=== PATIENT | female | born 1995 | race Caucasian/White ===

== ENCOUNTER 2018-06-27 21:41 | Emergency (ER) | payer MEDICAID, OTHER ==
--- NOTE | 2018-06-27 22:07 | EDM.PDOC ---
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 The patient has not started care but did have the confirmed at [facility] and has a scheduled appointment with them next week on July 04. The patient has had some upper respiratory symptoms but no abdominal pain vomiting or diarrhea and has had no morning sickness. She has no urinary complaints and has no abdominal surgical history. The patient has no gynecology history and says that she has not used any pads since the bleeding started. She has not had sexual intercourse for about a week. She says darkish-looking blood on the toilet paper but there is no tissue and she has not had any bleeding in her underwear. Sling no abdominal cramping. Review of systems: As per history of present illness and below otherwise all systems reviewed and negative. Past medical history: As per history of present illness and as reviewed below otherwise noncontributory. Surgical history: As per history of present illness and as reviewed below otherwise noncontributory. Social history: No reported history of drug or alcohol abuse. Family history: As per history of present illness and as reviewed below otherwise noncontributory. Physical exam: General: Well-developed well-nourished female who is nontoxic and vital signs are noted by me HEENT: Atraumatic, normocephalic, negative for conjunctival pallor or scleral icterus, mucous membranes moist, throat clear, neck supple, nontender, trachea midline. Lungs: Clear to auscultation, breath sounds equal bilaterally, chest nontender. Heart: S1S2, regular rate and rhythm no overt murmurs Abdomen: Soft, nondistended, nontender. Negative for masses or hepatosplenomegaly. Negative for costovertebral tenderness. Pelvis: Stable nontender. Genitourinary: Deferred. Rectal: Deferred. Extremities: Atraumatic, negative for cords or calf pain. Neurovascular unremarkable. Full range of motion without defects or deformities Neuro: Awake, alert, oriented. Cranial nerves II through XII unremarkable. Cerebellum unremarkable. Motor and sensory unremarkable throughout. Exam nonfocal. Diagnostics: CBC quantitative hCG UA with reflex culture ABO Rh pelvic ultrasound Therapeutics: The patient is aware of all testing results and ultrasound report. I've advised her on strict pelvic rest and to keep her follow-up appointment in the clinic next week. Impression: Threatened Definitive disposition and diagnosis as appropriate pending reevaluation and review of above. - Related Data Allergies Allergy/AdvReac Type Severity Reaction Status Date / Time No Known Allergies Allergy Verified 06/27/18 21:42 Home Meds: Home Meds . [No Known Home Meds] 06/27/18 [History] Past Medical History - Past Health History Medical/Surgical History: Denies Medical/Surgical History Social & Family History - Family History Family Medical History: Noncontributory - Tobacco Use Smoking Status *Q: Current Every Day Smoker Years of Tobacco use: 5 Packs/Tins Daily: 1 - Recreational Drug Use Recreational Drug Use: No ED ROS GENERAL - Review of Systems Review Of Systems: ROS reveals no pertinent complaints other than HPI. ED EXAM, GENERAL - Physical Exam Exam: See Below (See dictation) Course - Vital Signs Last Recorded V/S: Last Vital Signs Temp 37.4 C 06/27/18 21:55 Pulse 90 06/27/18 21:55 Resp 18 06/27/18 21:55 BP 117/73 06/27/18 21:55 Pulse Ox 95 06/27/18 21:55 - Orders/Labs/Meds Labs: Laboratory Tests 06/27/18 06/27/18 06/27/18 Range/Units 22:00 22:15 22:15 WBC 13.43 H (4.0-11.0) K/uL RBC 4.31 (4.30-5.90) M/uL Hgb 12.9 (12.0-16.0) g/dL Hct 36.9 (36.0-46.0) % MCV 85.6 (80.0-98.0) fL MCH 29.9 (27.0-32.0) pg MCHC 35.0 (31.0-37.0) g/dL RDW Std Deviation 39.6 (28.0-62.0) fl RDW Coeff of Angela 13 (11.0-15.0) % Plt Count 242 (150-400) K/uL MPV 10.50 (7.40-12.00) fL Neut % (Auto) 75.7 (48.0-80.0) % Lymph % (Auto) 15.9 L (16.0-40.0) % Prairie % (Auto) 7.6 (0.0-15.0) % Eos % (Auto) 0.7 (0.0-7.0) % Baso % (Auto) 0.1 (0.0-1.5) % Neut # (Auto) 10.2 H (1.4-5.7) K/uL Lymph # (Auto) 2.1 (0.6-2.4) K/uL Prairie # (Auto) 1.0 H (0.0-0.8) K/uL Eos # (Auto) 0.1 (0.0-0.7) K/uL Baso # (Auto) 0.0 (0.0-0.1) K/uL Nucleated RBC % 0.0 /100WBC Nucleated RBCs # 0 K/uL HCG, Quant 613230.0 mIU/mL Urine Color YELLOW Urine Appearance CLEAR Urine pH 5.5 (5.0-8.0) Ur Specific [place] 1.020 (1.001-1.035) Urine Protein NEGATIVE (NEGATIVE) mg/dL Urine Glucose (UA) NEGATIVE (NEGATIVE) mg/dL Urine Ketones NEGATIVE (NEGATIVE) mg/dL Urine Occult Blood TRACE-INTACT H (NEGATIVE) Urine Nitrite NEGATIVE (NEGATIVE) Urine Bilirubin NEGATIVE (NEGATIVE) Urine Urobilinogen 0.2 (<2.0) EU/dL Ur Leukocyte Esterase NEGATIVE (NEGATIVE) Urine RBC 0-1 (0-2/HPF) Urine WBC 0-2 (0-5/HPF) Ur Squamous Epith Cells FEW Urine Bacteria FEW (NEGATIVE) Urine Mucus LIGHT (NONE-MOD) Blood Type 06/27/18 Range/Units 22:15 WBC (4.0-11.0) K/uL RBC (4.30-5.90) M/uL Hgb (12.0-16.0) g/dL Hct (36.0-46.0) % MCV (80.0-98.0) fL MCH (27.0-32.0) pg MCHC (31.0-37.0) g/dL RDW Std Deviation (28.0-62.0) fl RDW Coeff of Angela (11.0-15.0) % Plt Count (150-400) K/uL MPV (7.40-12.00) fL Neut % (Auto) (48.0-80.0) % Lymph % (Auto) (16.0-40.0) % Prairie % (Auto) (0.0-15.0) % Eos % (Auto) (0.0-7.0) % Baso % (Auto) (0.0-1.5) % Neut # (Auto) (1.4-5.7) K/uL Lymph # (Auto) (0.6-2.4) K/uL Prairie # (Auto) (0.0-0.8) K/uL Eos # (Auto) (0.0-0.7) K/uL Baso # (Auto) (0.0-0.1) K/uL Nucleated RBC % /100WBC Nucleated RBCs # K/uL HCG, Quant mIU/mL Urine Color Urine Appearance Urine pH (5.0-8.0) Ur Specific Cam[place] (1.001-1.035) Urine Protein (NEGATIVE) mg/dL Urine Glucose (UA) (NEGATIVE) mg/dL Urine Ketones (NEGATIVE) mg/dL Urine Occult Blood (NEGATIVE) Urine Nitrite (NEGATIVE) Urine Bilirubin (NEGATIVE) Urine Urobilinogen (<2.0) EU/dL Ur Leukocyte Esterase (NEGATIVE) Urine RBC (0-2/HPF) Urine WBC (0-5/HPF) Ur Squamous Epith Cells Urine Bacteria (NEGATIVE) Urine Mucus (NONE-MOD) Blood Type O POSITIVE Departure - Departure Time of Disposition: 00:36 Disposition: Home, Self-Care 01 Clinical Impression: Threatened - Discharge Information Referrals: PCP,None [Primary Care Provider] - Forms: ED Department Discharge Additional Instructions: The following information is given to patients seen in the emergency department who are being discharged to home. This information is to outline your options for follow-up care. We provide all patients seen in our emergency department with a follow-up referral. The need for follow-up, as well as the timing and circumstances, are variable depending upon the specifics of your emergency department visit. If you don't have a primary care physician on staff, we will provide you with a referral. We always advise you to contact your personal physician following an emergency department visit to inform them of the circumstance of the visit and for follow-up with them and/or the need for any referrals to a consulting specialist. The emergency department will also refer you to a specialist when appropriate. This referral assures that you have the opportunity for followup care with a specialist. All of these measure are taken in an effort to provide you with optimal care, which includes your followup. Under all circumstances we always encourage you to contact your private physician who remains a resource for coordinating your care. When calling for followup care, please make the office aware that this follow-up is from your recent emergency room visit. If for any reason you are refused follow-up, please contact the [facility] emergency department at and ask to speak to the emergency department charge nurse. [facility] [address] [place] [address] [phone] Push hydration and rest as much as possible. Strict pelvic rest as we discussed with nothing in vagina until you're followed up on your appointment next week. Please keep your appointment as scheduled with [facility] and return to ER as needed and as discussed.
--- NOTE | 2018-06-27 23:46 | US ---
INDICATION: Vaginal bleeding TECHNIQUE: Ultrasound OB pelvis transvaginal. Real time pederson scale imaging of the pelvis was performed. COMPARISON: None FINDINGS: LMP: 04/28/2018 Gestational age by LMP: 8 weeks 4 days Estimated due date by LMP: 02/02/2019 Sonographic imaging demonstrates a single living intrauterine gestation. The embryo demonstrates a regular cardiac rate measuring 169 beats per minute. The embryo`s crown rump length measurement of 1.87 cm corresponds to a gestational age of 8 weeks 3 days with a sonographic due date of 02/03/2019. There is a normal appearing yolk sac. There are no gross abnormalities noted within the embryo at this early state of development. The placenta has not yet developed. The gestational sac has a normal appearance. Punctate hypoechoic area adjacent to the gestational sac of no clinical significance. The amount of fluid within the sac appears appropriate for gestational age. The cervix is closed. The myometrium appears normal. The ovaries are of normal size. There are no suspicious fluid collections noted in the cul-de-sac. IMPRESSION: Single intrauterine with crown-rump length consistent with a gestational age of 8 weeks 3 days. This compares the gestational age by LMP of 8 weeks 4 days. heart rate 169 beats per minute. Punctate hypoechoic area adjacent to gestational sac of unknown clinical significance. Small subchorionic hemorrhage cannot be excluded. Dictated by Geoff Carrero MD @ Jun 28 2018 12:29AM Signed by Dr. Geoff Carrero @ Jun 28 2018 12:31AM
== END 2018-06-28 00:44 | disposition home or self-care (01) ==
LOC: MW.ED 21:41
DX: O20.0 Threatened abortion (principal); O99.331 Smoking (tobacco) complicating pregnancy, first trimester; F17.210 Nicotine dependence, cigarettes, uncomplicated; Z3A.08 8 weeks gestation of pregnancy
CPT/HCPCS: 36415; 76801; 76801-26; 81001; 84702; 85025; 86900; 86901; 99283; 99284-25

== ENCOUNTER 2019-01-31 12:21 | Inpatient (IN) | payer MEDICAID ==
[2019-01-31] MEDS ORDERED: Sodium Chloride 0.9% 2.5 ML Syringe FLUSH PRN (12:33)
[2019-01-31] MEDS ORDERED: Sodium Chloride 0.9% 10 ML Syringe FLUSH PRN (12:33)
[2019-01-31] MEDS ORDERED: Lidocaine 1% 50 ML MDV INJECT PRN (12:33)
[2019-01-31] MEDS ORDERED: Water For Irrigation,Sterile 1,000 ML Container IRR PRN (12:33)
[2019-01-31] MEDS ORDERED: Ondansetron 4 MG/2 ML SDV IVPUSH PRN (12:33)
[2019-01-31] MEDS ORDERED: Sodium Chloride 0.9% 10 ML SDV IV PRN (12:33)
[2019-01-31] MEDS ORDERED: Methylergonovine 0.2 MG/1 ML Amp IM PRN (12:33)
[2019-01-31] MEDS ORDERED: Misoprostol 200 MCG Tab PO PRN (12:33)
[2019-01-31] MEDS ORDERED: Carboprost Tromethamine 250 MCG/1 ML Amp IM PRN (12:33)
[2019-01-31] MEDS ORDERED: Tranexamic Acid 1,000 MG in Sodium Chloride 0.9% 100 ML IV PRN (12:33)
[2019-01-31] MEDS ORDERED: Nalbuphine 10 MG/1 ML Vial IVPUSH PRN (12:33)
[2019-01-31] MEDS ORDERED: Terbutaline 1 MG/ML SDV SUBCUT PRN (12:33)
[2019-01-31] MEDS ORDERED: Butorphanol 1 MG/ML SDV IVPUSH PRN (12:33)
[2019-01-31] MEDS ORDERED: Oxytocin/0.9 % Sodium Chloride 30 UNIT/500 ML BAG IV SCH ×2 (12:45)
[2019-01-31] MEDS ORDERED: Misoprostol 25 MCG (1/4 of 100 MCG) Tab VAG PRN ×2 (13:00→17:00)
[2019-01-31] MEDS: Lactated Ringers 1,000 ML IV SCH (13:08)
--- NOTE | 2019-02-01 02:20 | PCM.PREANE ---
Preanesthetic Assessment - Anesthesia/Transfusion/Family Hx Anesthesia History: No Prior Anesthesia Family History of Anesthesia Reaction: No Transfusion History: No Prior Transfusion(s) - Review of Systems General: No Symptoms Pulmonary: No Symptoms Cardiovascular: No Symptoms Gastrointestinal: No Symptoms Neurological: No Symptoms Other: Reports: None - Physical Assessment Height: 5 ft 2 in Weight: 87.543 kg ASA Class: 2 Mental Status: Alert & Oriented x3 Airway Class: Mallampati = 2 Dentition: Reports: Normal Dentition Thyro-Mental Finger Breadths: 3 Mouth Opening Finger Breadths: 3 ROM/Head Extension: Full Lungs: Clear to Auscultation, Normal Respiratory Effort Cardiovascular: Regular Rate, Regular Rhythm - Lab Values: Laboratory Last Values WBC 8.85 K/uL (4.0-11.0) 01/31/19 13:07 RBC 3.97 M/uL (4.30-5.90) L 01/31/19 13:07 Hgb 12.0 g/dL (12.0-16.0) 01/31/19 13:07 Hct 35.9 % (36.0-46.0) L 01/31/19 13:07 MCV 90.4 fL (80.0-98.0) 01/31/19 13:07 MCH 30.2 pg (27.0-32.0) 01/31/19 13:07 MCHC 33.4 g/dL (31.0-37.0) 01/31/19 13:07 RDW Std Deviation 47.8 fl (28.0-62.0) 01/31/19 13:07 RDW Coeff of Angela 15 % (11.0-15.0) 01/31/19 13:07 Plt Count 182 K/uL (150-400) 01/31/19 13:07 MPV 11.30 fL (7.40-12.00) 01/31/19 13:07 Nucleated RBC % 0.0 /100WBC 01/31/19 13:07 Nucleated RBCs # 0 K/uL 01/31/19 13:07 Blood Type O POSITIVE 01/31/19 13:07 Antibody Screen NEGATIVE 01/31/19 13:07 - Allergies Allergies/Adverse Reactions: Allergies Allergy/AdvReac Type Severity Reaction Status Date / Time No Known Allergies Allergy Verified 01/31/19 18:15 - Anesthesia Plan Free Text/Narrative:: Induction for macrosomia - Acknowledgements Anesthesia Type Planned: Epidural Pt an Appropriate Candidate for the Planned Anesthesia: Yes Alternatives and Risks of Anesthesia Discussed w Pt/Guardian: Yes Pt/Guardian Understands and Agrees with Anesthesia Plan: Yes PreAnesthesia Questionnaire - Past Health History Medical/Surgical History: Denies Medical/Surgical History HEENT History: Reports: None Cardiovascular History: Reports: None Respiratory History: Reports: None Gastrointestinal History: Reports: GERD Genitourinary History: Reports: None 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 Para: 0 LMP (Approximate): Musculoskeletal History: Reports: None Neurological History: Reports: None Psychiatric History: Reports: None Endocrine/Metabolic History: Reports: Obesity/BMI 30+ Hematologic History: Reports: None Immunologic History: Reports: None Oncologic (Cancer) History: Reports: None Dermatologic History: Reports: None - Infectious Disease History Infectious Disease History: Reports: None, Mononucleosis - SUBSTANCE USE Smoking Status *Q: Former Smoker Tobacco Use Within Last Twelve Months: Cigarettes Second Hand Smoke Exposure: No Recreational Drug Use History: No - HOME MEDS Home Medications: Home Meds Pnv No.95/Ferrous Fum/Folic AC [ Caplet] 1 tab PO DAILY 01/31/19 [ History] valACYclovir HCl [Valtrex] 500 mg PO DAILY 01/31/19 [History] - CURRENT (IN HOUSE) MEDS Current Meds: Current Medications Butorphanol Tartrate (Stadol) 1 mg IVPUSH Q1H PRN PRN Reason: Pain Carboprost Tromethamine (Hemabate Ds) 250 mcg IM ASDIRECTED PRN PRN Reason: Post Hemorrhage Lactated Ringer's (Ringers, Lactated) 1,000 mls @ 150 mls/hr IV ASDIRECTED QUYEN Last Infusion: 01/31/19 13:31 Dose: 0 mls/hr Oxytocin/Sodium Chloride (Oxytocin 30 Unit/500 Ml-Ns) 30 unit in 500 mls @ 999 mls/hr IV TITRATE QUYEN Oxytocin/Sodium Chloride (Oxytocin 30 Unit/500 Ml-Ns) 30 unit in 500 mls @ 2 mls/hr IV TITRATE QUYEN; Protocol Tranexamic Acid 1,000 mg/ (Sodium Chloride) 110 mls @ 660 mls/hr IV ONETIME PRN PRN Reason: Bleeding Lidocaine HCl (Xylocaine 1%) 50 ml INJECT ONETIME PRN PRN Reason: Laceration repair Methylergonovine Maleate (Methergine) 0.2 mg IM ASDIRECTED PRN PRN Reason: Post Hemorrhage Misoprostol (Cytotec) 200 mcg PO ONETIME PRN PRN Reason: Post Hemorrhage Misoprostol (Cytotec) 25 mcg VAG ONETIME PRN PRN Reason: Cervical Ripening Last Admin: 01/31/19 13:17 Dose: 25 mcg Misoprostol (Cytotec) 25 mcg VAG Q4H PRN PRN Reason: Cervical Ripening Last Admin: 01/31/19 17:07 Dose: 25 mcg Nalbuphine HCl (Nubain) 10 mg IVPUSH Q1H PRN PRN Reason: Pain (severe 7-10) Ondansetron HCl (Zofran) 4 mg IVPUSH Q6H PRN PRN Reason: Nausea/Vomiting Sodium Chloride (Saline Flush) 10 ml FLUSH ASDIRECTED PRN PRN Reason: Keep Vein Open Sodium Chloride (Saline Flush) 2.5 ml FLUSH ASDIRECTED PRN PRN Reason: Keep Vein Open Sodium Chloride (Normal Saline) 10 ml IV ASDIRECTED PRN PRN Reason: IV Use Sterile Water (Sterile Water For Irrigation) 1,000 ml IRR ASDIRECTED PRN PRN Reason: delivery Terbutaline Sulfate (Brethine) 0.25 mg SUBCUT ASDIRECTED PRN PRN Reason: Tacysystole
[2019-02-01] MEDS: Lactated Ringers 1,000 ML IV SCH ×6 (02:40→23:41)
[2019-02-01] MEDS ORDERED: Acetaminophen 500 MG Tab PO ONE (17:25)
[2019-02-01] MEDS ORDERED: Ampicillin 2 GM in Sodium Chloride 0.9% 100 ML IV SCH (17:30)
[2019-02-01] MEDS ORDERED: Bupivacaine 0.5% 10 ML SDV ONE (20:42)
[2019-02-01] MEDS ORDERED: Citric Acid/Sodium Citrate Solution 30 ML Cup PO ONE (20:47)
[2019-02-01] MEDS ORDERED: Ondansetron 4 MG/2 ML SDV ONE (20:51)
[2019-02-01] MEDS ORDERED: Oxytocin 10 Units/1 ML SDV ONE (20:51)
[2019-02-01] MEDS ORDERED: ePHEDrine 50 MG/ML SDV ONE (20:57)
[2019-02-01] MEDS ORDERED: Sodium Chloride 0.9% 20 ML ONE (20:57)
[2019-02-01] MEDS ORDERED: Phenylephrine/Normal Saline 100 MCG/ML 10 ML Syringe ONE (21:00)
[2019-02-01] MEDS ORDERED: Oxytocin/0.9 % Sodium Chloride 30 UNIT/500 ML BAG IV SCH (21:00)
[2019-02-01] MEDS ORDERED: Lactated Ringers 1,000 ML IV SCH (21:00)
[2019-02-01] MEDS ORDERED: Glycopyrrolate 0.2 MG/ML SDV ONE (21:00)
[2019-02-01] MEDS ORDERED: Morphine PF 10 MG/10 ML SDV ONE (21:11)
[2019-02-01] MEDS ORDERED: Labetalol 100 MG/20 ML MDV ONE (21:18)
[2019-02-01] MEDS ORDERED: Clindamycin Phosphate in D5W 900 MG in Premix Bag 1 BAG IV PRN ×2 (21:19)
[2019-02-01] MEDS ORDERED: Octyl 2-Cyanoacrylate 1 Tube ONE (21:51)
[2019-02-01] MEDS ORDERED: Naloxone 0.4 MG/ML Syringe IVPUSH PRN (21:52)
[2019-02-01] MEDS ORDERED: diphenhydrAMINE 50 MG/ML SDV IVPUSH PRN ×2 (21:52→22:34)
[2019-02-01] MEDS ORDERED: Nalbuphine 10 MG/1 ML Vial IVPUSH PRN (21:52)
[2019-02-01] MEDS ORDERED: Bisacodyl 10 MG Supp RECTAL PRN (22:34)
[2019-02-01] MEDS ORDERED: Acetaminophen/oxyCODONE 325-5 MG Tab PO PRN (22:34)
[2019-02-01] MEDS ORDERED: Lanolin 100% Cream 7 GM Tube TOP PRN (22:34)
[2019-02-01] MEDS ORDERED: Ondansetron 4 MG/2 ML SDV IVPUSH PRN (22:34)
--- NOTE | 2019-02-01 22:40 | PCM.OPNOTE ---
- General Post-Op/Procedure Note Date of Surgery/Procedure: 02/01/19 Operative Procedure(s): Primary lower segment Findings: Live male delivered at 2124 , 8/9 weight 4210g Pre Op Diagnosis: Arrest of Dilatation. Suspected Macrosomia. Chorioamnionitis Post-Op Diagnosis: Same Anesthesia Technique: Epidural Primary Surgeon: Blake Stone Anesthesia Provider: Moi Muir Pathology: Placenta Fluid Replacement, Intraop: 1,000 Output, Urine Amount: 510 EBL in mLs: 800 Complications: None Condition: Good Free Text/Narrative:: Intake & Output 02/01/19 02/01/19 02/01/19 06:59 14:59 22:59 Output Total 520 Balance -520
[2019-02-01] MEDS ORDERED: Ketorolac 30 MG/ML SDV ONE (22:44)
[2019-02-01] MEDS: Ketorolac 30 MG/ML SDV IVPUSH SCH (22:45)
--- NOTE | 2019-02-01 22:51 | PCM.POSTAN ---
POST ANESTHESIA ASSESSMENT - MENTAL STATUS Mental Status: Alert, Oriented - VITAL SIGNS Vital Signs: Last Vital Signs Temp 211.1 F H 02/01/19 22:14 Pulse 94 02/01/19 22:49 Resp 14 02/01/19 22:49 BP 140/84 02/01/19 22:49 Pulse Ox 99 02/01/19 22:49 - RESPIRATORY Respiratory Status: Respiratory Rate WNL, Airway Patent, O2 Saturation Stable - CARDIOVASCULAR CV Status: Pulse Rate WNL, Blood Pressure Stable - GASTROINTESTINAL GI Status: No Symptoms - PAIN Pain Score: 0 - POST OP HYDRATION Hydration Status: Adequate & Stable - OBSERVATIONS Free Text/Narrative:: Temp is 99.5F
[2019-02-02] MEDS: Ketorolac 30 MG/ML SDV IVPUSH SCH ×4 (04:58→22:45)
[2019-02-02] MEDS: Lactated Ringers 1,000 ML IV SCH (08:08)
--- NOTE | 2019-02-02 11:14 | OR ---
SURGEON: MIGUEL GASPAR DATE OF PROCEDURE:02/01/2019 PREOPERATIVE DIAGNOSES: A 23-year-old G 1, P 0, at 39 weeks and 6 days, admitted for induction of labor, Macrosomia POSTOPERATIVE DIAGNOSES: A 23-year-old G 1, P 0, at 39 weeks and 6 days, admitted for induction of labor, elective and macrosomia, chorioamnionitis. INDICATION: Arrest of dilatation. Chorioamnionitis, Macrosomia. PROCEDURE: Primary low segment section. EBL: 800. IV FLUID: 1000. URINE OUTPUT: 500. ANESTHESIA: Epidural. NOTABLE FINDING: A live male delivered at 21:24. score is 8 and 9, weight is 4210g BRIEF HISTORY: The patient is a 23-year-old, G1, P0, 39 weeks and 6 days, who was offered primary secondary to suspected macrosomia. The patient declined and wanted to try induction of labor. Induction of labor was started with Cytotec, and after which, she got CRB. After CRB, she became 4 cm dilated. She was ruptured and Pitocin was started. The patient was about 5 to 6 cm for about 12 hours. She became a change. At this point, a decision was made to have a primary for arrest of dilatation. The patient was explained the risks, benefits, and alternatives and she wished to proceed. PROCEDURE IN DETAIL: The patient was taken to the operating room where she was placed in the dorsal lithotomy position with a leftward tilt. A Pfannenstiel skin incision was made with a scalpel and carried down all the way to the fascia with the Bovie. The fascia was incised and extended laterally. The fascia was then grasped superiorly and also inferiorly, from the rectus muscle. The peritoneum was entered in bluntly. The Angelo retractor was used to expose the lower uterine segment with exposure of the lower uterine segment. A lower uterine incision was made with the scalpel and extended upwards and outwards. The fetus was in cephalic position, occiput transverse, was brought to the level of the incision with fundal pressure. The body of the baby was delivered. Then, the cord was clamped and cut. Cord blood gases obtained. Infant was handed over to the waiting em physician. The placenta was delivered by manual massage of the uterine fundus. The uterine cavity was cleaned with moist laparotomy sponges. The utet hysterotomy were sutured in 2 layers, first layer was done with 0 Vicryl and locking, second was imbricating with 0 Monocryl. The incision was inspected and noted to be hemostatic. The gutters were clean. The right and left tube and ovary were visualized and were normal. The peritoneum was then approximated with 2-0 Vicryl. The rectus muscle was approximated at the raphe by 2-0 Vicryl . The fascia was closed with 0 Vicryl in a continuous fashion. The skin was closed with 3-0 Monocryl on a Erich needle. All instrument and pad count were correct x2. The patient tolerated the procedure well and was taken to Labor and Delivery room in stable condition. REHAN STILL /[id number] MTDD
--- NOTE | 2019-02-02 11:36 | PCM.PNPP ---
- General Info Date of Service: 02/02/19 Subjective Update: 23yo P1 s/p Primary for arrest of dilatation , , normal lochia Bains in , normal output Functional Status: Reports: Pain Controlled, Tolerating Diet, Ambulating - Review of Systems General: Reports: No Symptoms HEENT: Reports: No Symptoms Pulmonary: Reports: No Symptoms Cardiovascular: Reports: No Symptoms Gastrointestinal: Reports: No Symptoms Genitourinary: Reports: No Symptoms Musculoskeletal: Reports: No Symptoms Skin: Reports: No Symptoms Neurological: Reports: No Symptoms Psychiatric: Reports: No Symptoms - General Info Date of Service: 02/02/19 - Patient Data Vital Signs - Most Recent: Last Vital Signs Temp 36.9 C 02/02/19 00:30 Pulse 105 H 02/02/19 06:00 Resp 17 02/02/19 06:00 BP 115/75 02/02/19 04:00 Pulse Ox 97 02/02/19 06:00 Weight - Most Recent: 87.543 kg I&O - Last 24 Hours: Intake & Output 02/01/19 02/02/19 02/02/19 22:59 06:59 14:59 Intake Total 2800 Output Total 1030 1100 Balance 1770 -1100 Lab Results - Last 24 Hours: Laboratory Results - last 24 hr 02/02/19 Range/Units 05:55 Hgb 11.6 L (12.0-16.0) g/dL Hct 34.3 L (36.0-46.0) % Med Orders - Current: Current Medications Bisacodyl (Dulcolax) 10 mg RECTAL ONETIME PRN PRN Reason: Constipation Diphenhydramine HCl (Benadryl) 25 mg IVPUSH Q6H PRN PRN Reason: Itching or Nausea Docusate Sodium (Colace) 100 mg PO BID [facility] Emollient Ointment (Lansinoh Hpa) 0 gm TOP ASDIRECTED PRN PRN Reason: Sore Nipples Lactated Ringer's (Ringers, Lactated) 1,000 mls @ 125 mls/hr IV ASDIRECTED [facility] Last Admin: 02/02/19 08:08 Dose: 125 mls/hr Ampicillin Sodium 2 gm/ Sodium (Chloride) 100 mls @ 200 mls/hr IV Q6H [facility] Clindamycin Phosphate 900 mg/ (Premix) 50 mls @ 89.286 mls/hr IV Q8H [facility] Gentamicin Sulfate 80 mg/ (Sodium Chloride) 52 mls @ 100 mls/hr IV Q8H [facility] Ibuprofen (Motrin) 800 mg PO Q8H PRN PRN Reason: mild pain or fever Ketorolac Tromethamine (Toradol) 30 mg IVPUSH Q6H [facility] Stop: 02/02/19 22:01 Last Admin: 02/02/19 04:58 Dose: 30 mg Nalbuphine HCl (Nubain) 5 mg IVPUSH Q3H PRN PRN Reason: Pruritis Stop: 02/02/19 21:53 Naloxone HCl (Narcan) 0.1 mg IVPUSH ONETIME PRN PRN Reason: Respiratory Depression Stop: 02/02/19 21:53 Ondansetron HCl (Zofran) 4 mg IVPUSH Q4H PRN PRN Reason: Nausea/Vomiting Oxycodone/Acetaminophen (Percocet 325-5 Mg) 1 tab PO Q4H PRN PRN Reason: Pain (moderate 4-6) Oxycodone/Acetaminophen (Percocet 325-5 Mg) 2 tab PO Q4H PRN PRN Reason: Pain (moderate 4-6) Sodium Chloride (Saline Flush) 10 ml FLUSH ASDIRECTED PRN PRN Reason: Keep Vein Open Sodium Chloride (Saline Flush) 2.5 ml FLUSH ASDIRECTED PRN PRN Reason: Keep Vein Open Discontinued Medications Acetaminophen (Tylenol Extra Strength) 1,000 mg PO ONETIME ONE Stop: 02/01/19 17:26 Last Admin: 02/01/19 17:37 Dose: 1,000 mg Bupivacaine HCl (Sensorcaine-Mpf 0.5%) Confirm Administered Dose 20 ml .ROUTE .STK-MED ONE Stop: 02/01/19 20:43 Last Admin: 02/02/19 11:28 Dose: Not Given Butorphanol Tartrate (Stadol) 1 mg IVPUSH Q1H PRN PRN Reason: Pain Carboprost Tromethamine (Hemabate Ds) 250 mcg IM ASDIRECTED PRN PRN Reason: Post Hemorrhage Citric Acid/Sodium Citrate (Bicitra Solution) 30 ml PO ONETIME ONE Stop: 02/01/19 20:48 Diphenhydramine HCl (Benadryl) 25 mg IVPUSH Q4H PRN PRN Reason: Itching Stop: 02/02/19 21:53 Last Admin: 02/01/19 23:38 Dose: 25 mg Ephedrine Sulfate (Ephedrine Sulfate) Confirm Administered Dose 50 mg .ROUTE .STK-MED ONE Stop: 02/01/19 20:58 Glycopyrrolate (Robinul) Confirm Administered Dose 0.2 mg .ROUTE .STK-MED ONE Stop: 02/01/19 21:01 Lactated Ringer's (Ringers, Lactated) 1,000 mls @ 150 mls/hr IV ASDIRECTED [facility] Last Admin: 02/01/19 20:06 Dose: 150 mls/hr Oxytocin/Sodium Chloride (Oxytocin 30 Unit/500 Ml-Ns) 30 unit in 500 mls @ 999 mls/hr IV TITRATE [facility] Oxytocin/Sodium Chloride (Oxytocin 30 Unit/500 Ml-Ns) 30 unit in 500 mls @ 2 mls/hr IV TITRATE [facility]; Protocol Last Titration: 02/01/19 19:30 Dose: 18 munits/min, 18 mls/hr Tranexamic Acid 1,000 mg/ (Sodium Chloride) 110 mls @ 660 mls/hr IV ONETIME PRN PRN Reason: Bleeding Fentanyl/Bupivacaine HCl (Onwbaueo-Sczor-Ox 2 Mcg/Ml-0.125%) Confirm Administered Dose 100 mls @ as directed .ROUTE .STK-MED ONE Stop: 02/01/19 02:25 Fentanyl/Bupivacaine HCl (Qzzulkon-Ittes-Wv 2 Mcg/Ml-0.125%) Confirm Administered Dose 100 mls @ as directed .ROUTE .ST-MED ONE Stop: 02/01/19 12:53 Ampicillin Sodium 2 gm/ Sodium (Chloride) 100 mls @ 200 mls/hr IV Q6H [facility] Last Admin: 02/01/19 17:49 Dose: 200 mls/hr Gentamicin Sulfate 100 mg/ (Sodium Chloride) 52.5 mls @ 100 mls/hr IV ONETIME ONE Stop: 02/01/19 18:31 Last Admin: 02/01/19 18:42 Dose: 100 mls/hr Gentamicin Sulfate 80 mg/ (Sodium Chloride) 52 mls @ 100 mls/hr IV Q8H [facility] Clindamycin Phosphate 900 mg/ (Premix) 50 mls @ 100 mls/hr IV Q8H PRN PRN Reason: Temperature Oxytocin/Sodium Chloride (Oxytocin 30 Unit/500 Ml-Ns) 30 unit in 500 mls @ 250 mls/hr IV TITRATE [facility] Lactated Ringer's (Ringers, Lactated) 1,000 mls @ 500 mls/hr IV BOLUS [facility] Sodium Chloride (Normal Saline) Confirm Administered Dose 20 mls @ as directed .ROUTE .STK-MED ONE Stop: 02/01/19 20:58 Ketorolac Tromethamine (Toradol) Confirm Administered Dose 30 mg .ROUTE .STK- MED ONE Stop: 02/01/19 22:45 Labetalol HCl (Normodyne) Confirm Administered Dose 100 mg .ROUTE .STK-MED ONE Stop: 02/01/19 21:19 Lidocaine HCl (Xylocaine 1%) 50 ml INJECT ONETIME PRN PRN Reason: Laceration repair Methylergonovine Maleate (Methergine) 0.2 mg IM ASDIRECTED PRN PRN Reason: Post Hemorrhage Misoprostol (Cytotec) 200 mcg PO ONETIME PRN PRN Reason: Post Hemorrhage Misoprostol (Cytotec) 25 mcg VAG ONETIME PRN PRN Reason: Cervical Ripening Last Admin: 01/31/19 13:17 Dose: 25 mcg Misoprostol (Cytotec) 25 mcg VAG Q4H PRN PRN Reason: Cervical Ripening Last Admin: 01/31/19 17:07 Dose: 25 mcg Morphine Sulfate (Duramorph Pf) Confirm Administered Dose 10 mg .ROUTE .STK-MED ONE Stop: 02/01/19 21:12 Nalbuphine HCl (Nubain) 10 mg IVPUSH Q1H PRN PRN Reason: Pain (severe 7-10) Octyl Cyanoacrylate (Dermabond Advance) Confirm Administered Dose 1 applic .ROUTE .STK-MED ONE Stop: 02/01/19 21:52 Last Admin: 02/02/19 11:28 Dose: Not Given Ondansetron HCl (Zofran) 4 mg IVPUSH Q6H PRN PRN Reason: Nausea/Vomiting Ondansetron HCl (Zofran) Confirm Administered Dose 4 mg .ROUTE .STK-MED ONE Stop: 02/01/19 20:52 Oxytocin (Pitocin) Confirm Administered Dose 30 unit .ROUTE .STK-MED ONE Stop: 02/01/19 20:52 Phenylephrine HCl (Phenylephrine In Ns 100 Mcg/Ml) Confirm Administered Dose 1 mg .ROUTE .STK-MED ONE Stop: 02/01/19 21:01 Sodium Chloride (Normal Saline) 10 ml IV ASDIRECTED PRN PRN Reason: IV Use Sterile Water (Sterile Water For Irrigation) 1,000 ml IRR ASDIRECTED PRN PRN Reason: delivery Terbutaline Sulfate (Brethine) 0.25 mg SUBCUT ASDIRECTED PRN PRN Reason: Tacysystole - Infant Interaction Support Person: Mother, Significant Other - Recovery Exam Fundal Tone: Firm Fundal Level: At Umbilicus Fundal Placement: Midline Lochia Amount: Scant Lochia Color: Rubra/Red Perineum Description: Intact, Minimal Bruising/Swelling Episiotomy/Laceration: None Bladder Status: Indwelling Catheter in Place Urinary Elimination: Indwelling Catheter - Exam General: Alert HEENT: Pupils Equal Neck: Supple Lungs: Clear to Auscultation Cardiovascular: Regular Rate GI/Abdominal Exam: Normal Bowel Sounds Extremities: Normal Inspection Wound/Incisions: Dressing Dry and Intact Neurological: No New Focal Deficit Psy/Mental Status: Alert - Problem List & Annotations (1) delivery delivered SNOMED Code(s): 725969020 Code(s): O82 - ENCOUNTER FOR DELIVERY WITHOUT INDICATION Status: Acute Current Visit: Yes - Problem List Review Problem List Initiated/Reviewed/Updated: Yes - My Orders Last 24 Hours: My Active Orders 02/01/19 20:47 Vital Signs [RC] PER UNIT ROUTINE Schedule Procedure [COMM] Per Unit Routine 02/01/19 20:49 Notify Provider Vital Signs [RC] PRN 02/01/19 22:00 Ketorolac [Toradol] 30 mg IVPUSH Q6H 02/01/19 22:34 Patient Status [ADT] Routine Ambulate [RC] PER UNIT ROUTINE Communication Order [RC] PER UNIT ROUTINE Communication Order [RC] PER UNIT ROUTINE Communication Order [RC] Per Unit Routine May Shower [RC] ASDIRECTED Notify Provider Intake and Out [RC] ASDIRECTED Notify Provider Vital Signs [RC] ASDIRECTED RT Incentive Spirometry [RC] Q2HWA Vital Signs [RC] PER UNIT ROUTINE Acetaminophen/oxyCODONE [Percocet 325-5 MG] 1 tab PO Q4H PRN Acetaminophen/oxyCODONE [Percocet 325-5 MG] 2 tab PO Q4H PRN Bisacodyl [Dulcolax] 10 mg RECTAL ONETIME PRN Lanolin [Lansinoh HPA] See Dose Instructions TOP ASDIRECTED PRN Ondansetron [Zofran] 4 mg IVPUSH Q4H PRN diphenhydrAMINE [Benadryl] 25 mg IVPUSH Q6H PRN Assess Lochia [WOMSER] Per Unit Routine Assess Uterine Involution [WOMSER] Per Unit Routine Breast Pump [WOMSER] Per Unit Routine Peripheral IV Discontinue [OM.PC] Routine Sequential Compression Device [OM.PC] Per Unit Routine 02/01/19 22:35 Antiembolic Devices [RC] PER UNIT ROUTINE 02/01/19 22:45 Lactated Ringers [Ringers, Lactated] 1,000 ml IV ASDIRECTED 02/02/19 09:00 Docusate Sodium [Colace] 100 mg PO BID 02/02/19 11:30 Ampicillin 2 gm Sodium Chloride 0.9% [Normal Saline] 100 ml IV Q6H 02/02/19 12:30 Gentamicin 80 mg Sodium Chloride 0.9% [Normal Saline] 50 ml IV Q8H 02/02/19 13:30 Clindamycin Phosphate in D5W [Cleocin in D5W] 900 mg Premix Bag 1 bag IV Q8H 02/03/19 04:00 Ibuprofen [Motrin] 800 mg PO Q8H PRN - Assessment Assessment:: 23yo P1 s/p primary POD1 Normal lochia Ambulating Bains in Pain control good - Plan Plan:: CBC today Follow void Pain control as needed Incentive spirometry
[2019-02-02] MEDS: Docusate Sodium 100 MG Cap PO SCH ×2 (11:40→21:43)
[2019-02-02] MEDS: Ampicillin 2 GM in Sodium Chloride 0.9% 100 ML IV SCH ×3 (11:46→23:34)
--- NOTE | 2019-02-02 11:49 | PCM48HPAN ---
Post Anesthesia Note - EVALUATION WITHIN 48HRS OF ANESTHETIC Vital Signs in Normal Range: Yes Patient Participated in Evaluation: Yes Respiratory Function Stable: Yes Airway Patent: Yes Cardiovascular Function Stable: Yes Hydration Status Stable: Yes Pain Control Satisfactory: Yes Nausea and Vomiting Control Satisfactory: Yes Mental Status Recovered: Yes Vital Signs: Last Vital Signs Temp 98.4 F 02/02/19 00:30 Pulse 105 H 02/02/19 06:00 Resp 17 02/02/19 06:00 BP 115/75 02/02/19 04:00 Pulse Ox 97 02/02/19 06:00 - COMMENTS/OBSERVATIONS Free Text/Narrative:: Notified by nursing at 0300 of patient with some mild eye and lip swelling. benadryl IV was given and it has improved since. Uncertain of cause at this time. Will continue to monitor for now. PRN Benadryl is ordered and can be given if symptoms continue.
[2019-02-02] MEDS: Clindamycin Phosphate in D5W 900 MG in Premix Bag 1 BAG IV SCH ×4 (13:53→22:28)
[2019-02-02] MEDS: Acetaminophen/oxyCODONE 325-5 MG Tab PO PRN (22:46)
[2019-02-03] MEDS: Ibuprofen 800 MG Tab PO PRN ×2 (05:25→14:29)
[2019-02-03] MEDS: Ampicillin 2 GM in Sodium Chloride 0.9% 100 ML IV SCH (05:56)
[2019-02-03] MEDS: Clindamycin Phosphate in D5W 900 MG in Premix Bag 1 BAG IV SCH ×2 (06:38)
--- NOTE | 2019-02-03 11:41 | PCM.PNPP ---
- General Info Date of Service: 02/03/19 Subjective Update: 23yo P1 s/p Primary for arrest of dilatation , , normal lochia Normal output , POD 2 Functional Status: Reports: Pain Controlled, Tolerating Diet, Ambulating, Urinating - Review of Systems General: Reports: No Symptoms HEENT: Reports: No Symptoms Pulmonary: Reports: No Symptoms Cardiovascular: Reports: No Symptoms Gastrointestinal: Reports: No Symptoms Genitourinary: Reports: No Symptoms Musculoskeletal: Reports: No Symptoms Skin: Reports: No Symptoms Neurological: Reports: No Symptoms Psychiatric: Reports: No Symptoms - General Info Date of Service: 02/03/19 - Patient Data Vital Signs - Most Recent: Last Vital Signs Temp 36.3 C 02/03/19 07:44 Pulse 97 02/03/19 07:44 Resp 18 02/03/19 07:44 BP 109/66 02/03/19 07:44 Pulse Ox 96 02/03/19 07:44 Weight - Most Recent: 87.543 kg I&O - Last 24 Hours: Intake & Output 02/02/19 02/03/19 02/03/19 22:59 06:59 14:59 Output Total 500 Balance -500 Med Orders - Current: Current Medications Bisacodyl (Dulcolax) 10 mg RECTAL ONETIME PRN PRN Reason: Constipation Diphenhydramine HCl (Benadryl) 25 mg IVPUSH Q6H PRN PRN Reason: Itching or Nausea Docusate Sodium (Colace) 100 mg PO BID [facility] Last Admin: 02/02/19 21:43 Dose: 100 mg Emollient Ointment (Lansinoh Hpa) 0 gm TOP ASDIRECTED PRN PRN Reason: Sore Nipples Lactated Ringer's (Ringers, Lactated) 1,000 mls @ 125 mls/hr IV ASDIRECTED [facility] Last Admin: 02/02/19 08:08 Dose: 125 mls/hr Ampicillin Sodium 2 gm/ Sodium (Chloride) 100 mls @ 200 mls/hr IV Q6H [facility] Last Admin: 02/03/19 05:56 Dose: 200 mls/hr Clindamycin Phosphate 900 mg/ (Premix) 50 mls @ 89.286 mls/hr IV Q8H [facility] Last Admin: 02/03/19 06:38 Dose: 89.286 mls/hr Gentamicin Sulfate 80 mg/ (Sodium Chloride) 52 mls @ 100 mls/hr IV Q8H [facility] Last Admin: 02/03/19 05:16 Dose: 100 mls/hr Ibuprofen (Motrin) 800 mg PO Q8H PRN PRN Reason: mild pain or fever Last Admin: 02/03/19 05:25 Dose: 800 mg Ondansetron HCl (Zofran) 4 mg IVPUSH Q4H PRN PRN Reason: Nausea/Vomiting Oxycodone/Acetaminophen (Percocet 325-5 Mg) 1 tab PO Q4H PRN PRN Reason: Pain (moderate 4-6) Last Admin: 02/03/19 05:26 Dose: 1 tab Oxycodone/Acetaminophen (Percocet 325-5 Mg) 2 tab PO Q4H PRN PRN Reason: Pain (moderate 4-6) Last Admin: 02/02/19 22:46 Dose: 2 tab Sodium Chloride (Saline Flush) 10 ml FLUSH ASDIRECTED PRN PRN Reason: Keep Vein Open Sodium Chloride (Saline Flush) 2.5 ml FLUSH ASDIRECTED PRN PRN Reason: Keep Vein Open Discontinued Medications Acetaminophen (Tylenol Extra Strength) 1,000 mg PO ONETIME ONE Stop: 02/01/19 17:26 Last Admin: 02/01/19 17:37 Dose: 1,000 mg Bupivacaine HCl (Sensorcaine-Mpf 0.5%) Confirm Administered Dose 20 ml .ROUTE .STK-MED ONE Stop: 02/01/19 20:43 Last Admin: 02/02/19 11:28 Dose: Not Given Butorphanol Tartrate (Stadol) 1 mg IVPUSH Q1H PRN PRN Reason: Pain Carboprost Tromethamine (Hemabate Ds) 250 mcg IM ASDIRECTED PRN PRN Reason: Post Hemorrhage Citric Acid/Sodium Citrate (Bicitra Solution) 30 ml PO ONETIME ONE Stop: 02/01/19 20:48 Diphenhydramine HCl (Benadryl) 25 mg IVPUSH Q4H PRN PRN Reason: Itching Stop: 02/02/19 21:53 Last Admin: 02/01/19 23:38 Dose: 25 mg Ephedrine Sulfate (Ephedrine Sulfate) Confirm Administered Dose 50 mg .ROUTE .STK-MED ONE Stop: 02/01/19 20:58 Glycopyrrolate (Robinul) Confirm Administered Dose 0.2 mg .ROUTE .[facility] ONE Stop: 02/01/19 21:01 Lactated Ringer's (Ringers, Lactated) 1,000 mls @ 150 mls/hr IV ASDIRECTED [facility] Last Admin: 02/01/19 20:06 Dose: 150 mls/hr Oxytocin/Sodium Chloride (Oxytocin 30 Unit/500 Ml-Ns) 30 unit in 500 mls @ 999 mls/hr IV TITRATE [facility] Oxytocin/Sodium Chloride (Oxytocin 30 Unit/500 Ml-Ns) 30 unit in 500 mls @ 2 mls/hr IV TITRATE [facility]; Protocol Last Titration: 02/01/19 19:30 Dose: 18 munits/min, 18 mls/hr Tranexamic Acid 1,000 mg/ (Sodium Chloride) 110 mls @ 660 mls/hr IV ONETIME PRN PRN Reason: Bleeding Fentanyl/Bupivacaine HCl (Vswbrmvm-Rcjtd-Oy 2 Mcg/Ml-0.125%) Confirm Administered Dose 100 mls @ as directed .ROUTE .[facility]-MED ONE Stop: 02/01/19 02:25 Fentanyl/Bupivacaine HCl (Zhresnjb-Swoue-Ht 2 Mcg/Ml-0.125%) Confirm Administered Dose 100 mls @ as directed .ROUTE .[facility] ONE Stop: 02/01/19 12:53 Ampicillin Sodium 2 gm/ Sodium (Chloride) 100 mls @ 200 mls/hr IV Q6H [facility] Last Admin: 02/01/19 17:49 Dose: 200 mls/hr Gentamicin Sulfate 100 mg/ (Sodium Chloride) 52.5 mls @ 100 mls/hr IV ONETIME ONE Stop: 02/01/19 18:31 Last Admin: 02/01/19 18:42 Dose: 100 mls/hr Gentamicin Sulfate 80 mg/ (Sodium Chloride) 52 mls @ 100 mls/hr IV Q8H [facility] Clindamycin Phosphate 900 mg/ (Premix) 50 mls @ 100 mls/hr IV Q8H PRN PRN Reason: Temperature Oxytocin/Sodium Chloride (Oxytocin 30 Unit/500 Ml-Ns) 30 unit in 500 mls @ 250 mls/hr IV TITRATE [facility] Lactated Ringer's (Ringers, Lactated) 1,000 mls @ 500 mls/hr IV BOLUS [facility] Sodium Chloride (Normal Saline) Confirm Administered Dose 20 mls @ as directed .ROUTE .STK-MED ONE Stop: 02/01/19 20:58 Ketorolac Tromethamine (Toradol) 30 mg IVPUSH Q6H [facility] Stop: 02/02/19 22:01 Last Admin: 02/02/19 22:45 Dose: 30 mg Ketorolac Tromethamine (Toradol) Confirm Administered Dose 30 mg .ROUTE .STK- MED ONE Stop: 02/01/19 22:45 Labetalol HCl (Normodyne) Confirm Administered Dose 100 mg .ROUTE .STK-MED ONE Stop: 02/01/19 21:19 Lidocaine HCl (Xylocaine 1%) 50 ml INJECT ONETIME PRN PRN Reason: Laceration repair Methylergonovine Maleate (Methergine) 0.2 mg IM ASDIRECTED PRN PRN Reason: Post Hemorrhage Misoprostol (Cytotec) 200 mcg PO ONETIME PRN PRN Reason: Post Hemorrhage Misoprostol (Cytotec) 25 mcg VAG ONETIME PRN PRN Reason: Cervical Ripening Last Admin: 01/31/19 13:17 Dose: 25 mcg Misoprostol (Cytotec) 25 mcg VAG Q4H PRN PRN Reason: Cervical Ripening Last Admin: 01/31/19 17:07 Dose: 25 mcg Morphine Sulfate (Duramorph Pf) Confirm Administered Dose 10 mg .ROUTE .STK-MED ONE Stop: 02/01/19 21:12 Nalbuphine HCl (Nubain) 10 mg IVPUSH Q1H PRN PRN Reason: Pain (severe 7-10) Nalbuphine HCl (Nubain) 5 mg IVPUSH Q3H PRN PRN Reason: Pruritis Stop: 02/02/19 21:53 Naloxone HCl (Narcan) 0.1 mg IVPUSH ONETIME PRN PRN Reason: Respiratory Depression Stop: 02/02/19 21:53 Octyl Cyanoacrylate (Dermabond Advance) Confirm Administered Dose 1 applic .ROUTE .STK-MED ONE Stop: 02/01/19 21:52 Last Admin: 02/02/19 11:28 Dose: Not Given Ondansetron HCl (Zofran) 4 mg IVPUSH Q6H PRN PRN Reason: Nausea/Vomiting Ondansetron HCl (Zofran) Confirm Administered Dose 4 mg .ROUTE .STK-MED ONE Stop: 02/01/19 20:52 Oxytocin (Pitocin) Confirm Administered Dose 30 unit .ROUTE .STK-MED ONE Stop: 02/01/19 20:52 Phenylephrine HCl (Phenylephrine In Ns 100 Mcg/Ml) Confirm Administered Dose 1 mg .ROUTE .STK-MED ONE Stop: 02/01/19 21:01 Sodium Chloride (Normal Saline) 10 ml IV ASDIRECTED PRN PRN Reason: IV Use Sterile Water (Sterile Water For Irrigation) 1,000 ml IRR ASDIRECTED PRN PRN Reason: delivery Terbutaline Sulfate (Brethine) 0.25 mg SUBCUT ASDIRECTED PRN PRN Reason: Tacysystole - Interaction Support Person: Mother, Significant Other - Recovery Exam Fundal Tone: Firm Fundal Level: 1 Fingerbreadths Below Umbilicus Fundal Placement: Midline Lochia Amount: Small Lochia Color: Rubra/Red Perineum Description: Intact, Minimal Bruising/Swelling Episiotomy/Laceration: None Bladder Status: Nonpalpable, Voiding Urinary Elimination: Voided - Exam General: Alert HEENT: Pupils Equal Neck: Supple Lungs: Clear to Auscultation Cardiovascular: Regular Rate, Regular Rhythm GI/Abdominal Exam: Normal Bowel Sounds Extremities: Normal Inspection Wound/Incisions: Healing Well, Dressing Dry and Intact Neurological: No New Focal Deficit Psy/Mental Status: Alert - Problem List & Annotations (1) delivery delivered SNOMED Code(s): 800135842 Code(s): O82 - ENCOUNTER FOR DELIVERY WITHOUT INDICATION Status: Acute Current Visit: Yes - Problem List Review Problem List Initiated/Reviewed/Updated: Yes - My Orders Last 24 Hours: My Active Orders 02/02/19 11:30 Ampicillin 2 gm Sodium Chloride 0.9% [Normal Saline] 100 ml IV Q6H 02/02/19 12:30 Gentamicin 80 mg Sodium Chloride 0.9% [Normal Saline] 50 ml IV Q8H 02/02/19 13:30 Clindamycin Phosphate in D5W [Cleocin in D5W] 900 mg Premix Bag 1 bag IV Q8H 02/03/19 04:00 Ibuprofen [Motrin] 800 mg PO Q8H PRN - Assessment Assessment:: 23yo P1 s/p primary POD 2 Normal lochia Ambulating Pain control good - Plan Plan:: Discharge home
[2019-02-03] MEDS: Acetaminophen/oxyCODONE 325-5 MG Tab PO PRN (14:27)
== END 2019-02-03 17:00 | disposition home or self-care (01) | DRG 786 ==
LOC: MW.OB 12:21 → OBSVTOIN 02-01 21:24 → MW.OB 02-02
PROVIDERS: ADMIT Obstetrics & Gynecology; ATTEND Obstetrics & Gynecology
PROC: 10D00Z1 Extraction of Products of Conception, Low, Open Approach (ICD-10-PCS; principal; 2019-02-01)
PROC: 3E033VJ Introduction of Other Hormone into Peripheral Vein, Percutaneous Approach (ICD-10-PCS; 2019-02-01)
DX: O36.63X0 Maternal care for excessive fetal growth, third trimester, not applicable or unspecified (principal); O41.1230 Chorioamnionitis, third trimester, not applicable or unspecified; Z3A.39 39 weeks gestation of pregnancy; Z37.0 Single live birth
CPT/HCPCS: 36415; 51702; 59025; 59200; 85014; 85018; 85027; 86850; 86900; 86901; 88305; A9270-GY; J0290; J1200; J1580; J1885; J2270; J2370; J2405; J2590; J3490; J7030; J7050; J7120

== ENCOUNTER 2023-04-06 05:01 | Inpatient (IN) | payer BC, MEDICAID ==
[2023-04-06] MEDS ORDERED: Sodium Chloride 0.9% 20 ML SDV IV PRN (05:03)
[2023-04-06] MEDS ORDERED: Citric Acid/Sodium Citrate Solution 30 ML Cup PO ONE (05:03)
[2023-04-06] MEDS ORDERED: Sodium Chloride 0.9% 10 ML Syringe FLUSH PRN (05:03)
[2023-04-06] MEDS ORDERED: Sodium Chloride 0.9% 2.5 ML Syringe FLUSH PRN (05:03)
[2023-04-06] MEDS ORDERED: ceFAZolin 2 GM in Sodium Chloride 0.9% 50 ML IV ONE (05:15)
[2023-04-06] MEDS ORDERED: Oxytocin/0.9 % Sodium Chloride 30 UNIT/500 ML BAG IV SCH ×2 (05:15→08:15)
[2023-04-06] MEDS: Lactated Ringers 1,000 ML IV SCH ×2 (05:40→07:08)
[2023-04-06 06:08] LABS: HEMOGLOBIN 11.8 g/dL (12.0-16.0); MEAN CORPUSCULAR HEMOGLOBIN 29.6 pg (28.0-32.0); MEAN CORPUSCULAR HGB CONC 34.7 g/dL (32.0-36.0); MEAN CORPUSCULAR VOLUME 85.4 fL (83.0-99.0); MEAN PLATELET VOLUME 11.4 fL (9.4-12.3); PLATELET COUNT,PLT 164 K/uL (150-400); RED BLOOD CELL COUNT 3.98 M/uL (4.10-5.30); WHITE BLOOD CELL COUNT,WBC 8.23 K/uL (3.9-11.3)
[2023-04-06] MEDS ORDERED: fentaNYL 100 MCG/2 ML SDV ONE (06:35)
[2023-04-06] MEDS ORDERED: Morphine 10 MG/ML SDV ONE (06:36)
[2023-04-06] MEDS ORDERED: Morphine PF 10 MG/10 ML SDV ONE (06:36)
[2023-04-06] MEDS ORDERED: Famotidine 20 MG/2 ML SDV ONE (06:42)
[2023-04-06] MEDS ORDERED: Ondansetron 4 MG/2 ML SDV ONE ×2 (08:00→08:08)
[2023-04-06] MEDS ORDERED: Metoclopramide 10 MG/2 ML SDV ONE (08:00)
[2023-04-06] MEDS ORDERED: Oxytocin 10 Units/1 ML SDV ONE ×3 (08:08→08:21)
[2023-04-06] MEDS ORDERED: Dexamethasone 4 MG/ML 5 ML MDV ONE (08:08)
[2023-04-06] MEDS ORDERED: Phenylephrine 1% 10 MG/ML SDV ONE (08:08)
[2023-04-06] MEDS ORDERED: ePHEDrine 50 MG/ML SDV ONE (08:08)
[2023-04-06] MEDS ORDERED: ceFAZolin 2 GM Vial ONE (08:08)
[2023-04-06] MEDS ORDERED: Lanolin 100% Cream 7 GM Tube TOP PRN (08:12)
[2023-04-06] MEDS ORDERED: Methylergonovine 0.2 MG/1 ML Amp IM PRN (08:12)
[2023-04-06] MEDS ORDERED: diphenhydrAMINE 50 MG/ML SDV IVPUSH PRN (08:12)
[2023-04-06] MEDS ORDERED: Oxytocin 10 Units/1 ML SDV IM PRN (08:12)
[2023-04-06] MEDS ORDERED: Bisacodyl 10 MG Supp RECTAL PRN (08:12)
[2023-04-06] MEDS ORDERED: Misoprostol 200 MCG Tab RECTAL PRN (08:12)
[2023-04-06] MEDS ORDERED: Acetaminophen 500 MG Tab PO PRN (08:12)
[2023-04-06] MEDS ORDERED: Ondansetron 4 MG/2 ML SDV IVPUSH PRN (08:12)
[2023-04-06] MEDS ORDERED: Lactated Ringers 1,000 ML IV SCH (08:15)
[2023-04-06 08:41] LABS: PH,UMBILICAL ARTERIAL 7.225 (7.18-7.38); PH,UMBILICAL VENOUS 7.273 (7.25-7.45)
[2023-04-06] MEDS ORDERED: Water For Injection, Sterile 40 ML ONE (09:37)
[2023-04-06] MEDS ORDERED: Ropivacaine 0.5% 5 MG/ML 30 ML SDV ONE (09:37)
[2023-04-06] MEDS: Ketorolac 30 MG/ML SDV IVPUSH SCH ×2 (14:02→20:15)
[2023-04-06] MEDS ORDERED: Ketorolac 30 MG/ML SDV IVPUSH SCH (14:15)
[2023-04-06] MEDS: Acetaminophen 1,000 MG in Premix Bag 1 BAG IV SCH ×2 (16:17→22:09)
[2023-04-06] MEDS: Prenatal Multivitamin with Calcium/Folic Acid/Iron Tab PO SCH (18:42)
[2023-04-06] MEDS: Docusate Sodium 100 MG Cap PO SCH ×2 (18:43→21:03)
[2023-04-07] MEDS: Ketorolac 30 MG/ML SDV IVPUSH SCH ×3 (01:06→13:52)
[2023-04-07] MEDS: oxyCODONE 5 MG Tab PO PRN ×3 (01:13→20:20)
[2023-04-07] MEDS: Acetaminophen 1,000 MG in Premix Bag 1 BAG IV SCH (04:33)
[2023-04-07 05:48] LABS: HEMATOCRIT 25.3 % (37.0-47.0); HEMOGLOBIN 8.7 g/dL (12.0-16.0)
[2023-04-07] MEDS ORDERED: Ibuprofen 800 MG Tab PO PRN (08:12)
[2023-04-07] MEDS: Docusate Sodium 100 MG Cap PO SCH ×2 (20:21→23:03)
[2023-04-07] MEDS: Prenatal Multivitamin with Calcium/Folic Acid/Iron Tab PO SCH (23:03)
[2023-04-08] MEDS: oxyCODONE 5 MG Tab PO PRN (03:07)
[2023-04-08] MEDS: Prenatal Multivitamin with Calcium/Folic Acid/Iron Tab PO SCH (09:45)
[2023-04-08] MEDS: Docusate Sodium 100 MG Cap PO SCH (09:45)
== END 2023-04-08 12:42 | disposition home or self-care (01) | DRG 540 ==
LOC: MW.OB 05:01
PROVIDERS: ADMIT Obstetrics & Gynecology; ATTEND Obstetrics & Gynecology
PROC: 10D00Z1 Extraction of Products of Conception, Low, Open Approach (ICD-10-PCS; principal; 2023-04-06 07:00)
DX: O34.211 Maternal care for low transverse scar from previous cesarean delivery (principal); O99.334 Smoking (tobacco) complicating childbirth; F17.210 Nicotine dependence, cigarettes, uncomplicated; O99.824 Streptococcus B carrier state complicating childbirth; Z37.0 Single live birth; Z3A.39 39 weeks gestation of pregnancy
CPT/HCPCS: 36415; 59025; 82803; 85014; 85018; 85027; 86592; 86850; 86900; 86901; A9270-GY; J0131; J0690; J1100; J1885; J2270; J2274; J2371; J2405; J2590; J2765; J2795; J3010; J3490; J7120